=== PATIENT | male | born 1970 | race Caucasian/White ===

== ENCOUNTER 2024-11-28 16:32 | Emergency (ER) | payer OTHER ==
[2024-11-28] MEDS ORDERED: Nitroglycerin 2% Ointment 1 INCH/1 GM Packet ONE (17:16)
[2024-11-28 18:04] LABS: #Basophils 0.04 10x3/uL (0.0-0.2); #Eosinophils 0.03 10x3/uL (0.0-0.5); #Monocytes 1.57 10x3/uL (0.0-1.1); #Neutrophils 14.61 10x3/uL (1.5-8.4); %Basophils 0.2 % (0.0-2.0); %Eosinophils 0.2 % (0.0-6.0); %Lymphocytes 8.3 % (18.0-47.0); %Monocytes 8.8 % (0.0-10.0); %Neutrophils 81.9 % (40.0-75.0); Hematocrit 46.7 % (38.8-50.0); Hemoglobin 15.7 g/dL (13.5-17.5); Mean Corpuscular HGB CONC 33.6 g/dL (32.0-36.0); Mean Corpuscular Hemoglobin 30.5 pg (27.0-33.0); Mean Corpuscular Volume 90.7 fL (81.2-95.1); Mean Platelet Volume 10.5 fL (7.4-10.4); Platelet Count 260 10x3/uL (150-450); Red Blood Cell (RBC) Count 5.15 10x6/uL (4.32-5.72); White Blood Cell (WBC) Count 17.8 10x3/uL (3.5-10.5)
[2024-11-28] MEDS ORDERED: Morphine 4 MG/ML VIAL ONE ×2 (18:35→19:42)
[2024-11-28 19:29] LABS: ALT (SGPT) 18 U/L (8-55); AST (SGOT) 19 U/L (5-34); Alkaline Phosphatase 61 U/L (40-110); Anion Gap 16 mmol/L (10-20); BUN (Urea Nitrogen) 9 mg/dL (8.4-25.7); Bilirubin, Total 0.9 mg/dL (0.2-1.2); Calc. Creatinine Clearance 0 mL/min (70-130); Carbon Dioxide 19 mmol/L (22-29); Chloride 101 mmol/L (98-107); Estimated GFR 91; Globulin 4.1 g/dL (2.4-3.5); Glucose 104 mg/dL (70-105); Lipase 8 U/L (8-78); Potassium 3.2 mmol/L (3.5-5.1); Protein, Total 8.1 g/dL (6.0-8.3); Sodium 133 mmol/L (136-145)
[2024-11-28 19:51] LABS: Troponin I Less than 0.010 ng/mL (< 0.028)
[2024-11-28 21:22] LABS: Troponin I Less than 0.010 ng/mL (< 0.028)
== END 2024-11-29 01:01 | disposition short-term general hospital (02) ==
LOC: EEVIPCON 16:32 → CSHERS 16:32
DX: R07.9 Chest pain, unspecified (principal); I10 Essential (primary) hypertension; K21.9 Gastro-esophageal reflux disease without esophagitis; Z79.899 Other long term (current) drug therapy
CPT/HCPCS: 36415; 71045; 80053; 83690; 84484; 85025; 93005; 93010; 96374; 96376; J2272